=== PATIENT | female | born 1965 | race Caucasian/White ===

== ENCOUNTER 2017-06-02 22:20 | Emergency (ER) | payer OTHER ==
[2017-06-02 23:45] LABS: ABS Basophils 0 10^3/ul (0-0.2); ABS Eosinophils 0.2 10^3/ul (0-0.6); ABS Lymphocytes 1.7 10^3/ul (1.0-4.8); ABS Monocytes 0.4 10^3/ul (0-0.8); ABS Neutrophils 2.2 10^3/ul (1.5-7.7); ABS Nucleated RBC 0 10^3/ul; Eosinophil % 4.3 % (0-6); Hematocrit 36 % (35-47); Hemoglobin 12.6 g/dl (12.0-16.0); Lymphocyte % 37.1 % (25-47); Mean Corpuscular HGB Conc 35 g/dl (31-36); Mean Corpuscular Hemoglobin 31 pg (27-31); Mean Corpuscular Volume 88 fL (80-97); Mean Platelet Volume 8 um3 (7.4-10.4); Nucleated Red Blood Cells % 0; Platelet Count 249 10^3/ul (150-450); Red Blood Count 4.08 10^6/ul (4.0-5.4); Red Cell Distribution Width 13 % (10.5-15); White Blood Count 4.5 10^3/ul (3.5-10.8)
[2017-06-03 00:20] LABS: EGFR Non-African American 77.6 (>60)
--- NOTE | 2017-06-03 00:32 | ED ---
HPI Chest Pain - HPI Summary HPI Summary: 51 female presents to ED with complaints of left sided chest pain that began around 7pm this evening 06/02/17 and resolved spontaneously around 11pm. Patient states pain was sharp and shooting and progressed throughout the few hours it lasted. States it radiated into left arm/shoulder and her left arm felt heavy. Some radiation into back. Denies any jaw radiation. Patient states the pain took her breath away however she was not having trouble breathing or SOB. Denies numbness/tingling. No nausea, vomiting, fever, chills, abdominal pain. Did not recently eat any acidic, spicy or greasy foods. States pain resolved on its own. Has never had this type of pain in the past. States she is healthy without any PMHx and no risk factors. Denies recent travel, cigarette use, prolonged bed rest. No history of blood clots. No medications. No pain or SOB on exertion. No other complaints. No cough or congestion. No recent illness. - History of Current Complaint Chief Complaint: EDChestPainROMI Time Seen by Provider: 06/02/17 22:47 Hx Obtained From: Patient Onset/Duration: Started Hours Ago, Resolved Timing: Constant, Lasting Hours Initial Severity: Severe Current Severity: Mild Pain Intensity: 3 Pain Scale Used: 0-10 Numeric Chest Pain Location: Left Anterior Chest Pain Radiates: Yes Chest Pain Radiates To:: Shoulder - L, Arm - L Character: Burning, Sharp/Stabbing Aggravating Factor(s): Nothing Alleviating Factor(s): Spontaneous Resolution Associated Signs and Symptoms: Positive: Chest Pain - Risk Factors Pulmonary Embolism Risk Factors: Negative TAD Risk Factors: Negative AMI/ACS Risk Factors: Family History - father [place] - Allergy/Home Medications Allergies/Adverse Reactions: Allergies Allergy/AdvReac Type Severity Reaction Status Date / Time PRESERVATIVES Allergy RASH FROM Uncoded 06/02/17 22:45 SOME LOTIONS PMH/Surg Hx/FS Hx/Imm Hx Endocrine/Hematology History: Reports: Hx Anemia - HX OF RELATED TO CURRENT SITUATION Cardiovascular History: Denies: Hx Hypertension, Other Cardiovascular Problems/Disorders Respiratory History: Denies: Other Respiratory Problems/Disorders GI History: Denies: Other GI Disorders Musculoskeletal History: Denies: Other Musculoskeletal History Sensory History: Reports: Hx Contacts or Glasses - GLASSES Denies: Hx Hearing Aid Opthamlomology History: Reports: Hx Contacts or Glasses - GLASSES Neurological History: Denies: Other Neuro Impairments/Disorders - Cancer History Hx Chemotherapy: No Hx Radiation Therapy: No - Surgical History Hx Anesthesia Reactions: No - Immunization History Date of Influenza Vaccine: Fall 2016 Infectious Disease History: No Infectious Disease History: Denies: Traveled Outside the [place] in Last 30 Days - Family History Known Family History: Positive: None - Social History Alcohol Use: Rare Alcohol Amount: 1 PER WEEK Substance Use Type: Reports: None Smoking Status (MU): Never Smoked Tobacco Have You Smoked in the Last Year: No Review of Systems Constitutional: Negative Positive: Chest Pain Respiratory: Negative Neurological: Negative All Other Systems Reviewed And Are Negative: Yes Physical Exam Triage Information Reviewed: Yes Vital Signs On Initial Exam: Initial Vitals Temp Pulse Resp BP Pulse Ox 99 F 60 18 180/101 100 06/02/17 22:23 06/02/17 22:23 06/02/17 22:23 06/02/17 22:23 06/02/17 22:23 BP imporved on recheck 117/73 Vital Signs Reviewed: Yes Appearance: Positive: Well-Appearing, No Pain Distress, Well-Nourished Skin: Positive: Warm, Skin Color Reflects Adequate Perfusion, Dry. Negative: Cold, Numb, Cyanosis @, Pale, Erythema @ Head/Face: Positive: Normal Head/Face Inspection Eyes: Positive: Conjunctiva Clear ENT: Positive: Pharynx normal Neck: Positive: Supple, Nontender Respiratory/Lung Sounds: Positive: Clear to Auscultation, Breath Sounds Present. Negative: Rales, Rhonchi, Tracheal Deviation, Wheezes Cardiovascular: Positive: Normal, RRR, Pulses are Symmetrical in both Upper and Lower Extremities, Other - reproducible. Negative: Murmur, Rub, Tachycardia, Leg Edema Left, Leg Edema Right Abdomen Description: Positive: Nontender, Soft Bowel Sounds: Positive: Present Musculoskeletal: Positive: Normal, Strength/ROM Intact Neurological: Positive: Normal, Sensory/Motor Intact, Alert, Oriented to Person Place, Time, CN Intact II-III, Normal Gait Diagnostics - Vital Signs Vital Signs Temp Pulse Resp BP Pulse Ox 06/03/17 00:01 57 14 135/76 97 06/03/17 00:00 56 15 98 06/02/17 23:30 56 19 136/89 97 06/02/17 23:00 57 21 121/80 97 06/02/17 22:50 57 98 06/02/17 22:49 138/84 06/02/17 22:23 99 F 60 18 180/101 100 - Laboratory Lab Results: Lab Results 06/02/17 06/02/17 06/02/17 Range/Units 23:33 23:33 23:33 WBC 4.5 (3.5-10.8) 10^3/ul RBC 4.08 (4.0-5.4) 10^6/ul Hgb 12.6 (12.0-16.0) g/dl Hct 36 (35-47) % MCV 88 (80-97) fL MCH 31 (27-31) pg MCHC 35 (31-36) g/dl RDW 13 (10.5-15) % Plt Count 249 (150-450) 10^3/ul MPV 8 (7.4-10.4) um3 Neut % (Auto) 48.7 (38-83) % Lymph % (Auto) 37.1 (25-47) % Bremer % (Auto) 9.0 (1-9) % Eos % (Auto) 4.3 (0-6) % Baso % (Auto) 0.9 (0-2) % Absolute Neuts (auto) 2.2 (1.5-7.7) 10^3/ul Absolute Lymphs (auto) 1.7 (1.0-4.8) 10^3/ul Absolute Monos (auto) 0.4 (0-0.8) 10^3/ul Absolute Eos (auto) 0.2 (0-0.6) 10^3/ul Absolute Basos (auto) 0 (0-0.2) 10^3/ul Absolute Nucleated RBC 0 10^3/ul Nucleated RBC % 0 Sodium 136 (133-145) mmol/L Potassium 4.0 (3.5-5.0) mmol/L Chloride 103 (101-111) mmol/L Carbon Dioxide 29 (22-32) mmol/L Anion Gap 4 (2-11) mmol/L BUN 16 (6-24) mg/dL Creatinine 0.78 (0.51-0.95) mg/dL Est GFR ( Amer) 99.7 (>60) Est GFR (Non-Af Amer) 77.6 (>60) BUN/Creatinine Ratio 20.5 H (8-20) Glucose 126 H (70-100) mg/dL Lactic Acid 0.9 (0.5-2.0) mmol/L Calcium 9.4 (8.6-10.3) mg/dL Total Bilirubin 1.00 (0.2-1.0) mg/dL AST 15 (13-39) U/L ALT 9 (7-52) U/L Alkaline Phosphatase 55 (34-104) U/L Troponin I 0.00 (<0.04) ng/mL Total Protein 6.6 (6.4-8.9) g/dL Albumin 4.0 (3.2-5.2) g/dL Globulin 2.6 (2-4) g/dL Albumin/Globulin Ratio 1.5 (1-3) Result Diagrams: 06/02/17 23:33 06/02/17 23:33 Lab Statement: Any lab studies that have been ordered have been reviewed, and results considered in the medical decision making process. - EKG EKG Cardiac Rate: NL EKG Rhythm: Sinus Bradycardia - [address] Segment: Normal Ectopy: None EKG Interpretation: NSR, no stemi, 51 bpm EKG Comparison: Other - no EKG available to compare Re-Evaluation - Re-Evaluation First Eval Re-Evaluation Time: 00:00 Change: Improved - pain resolved. updated on results of labs and current plan, marvinn agrees and understands Second Eval Re-Evaluation Time: 02:00 Change: Improved - feeling better, wants to go home, second troponin results negative, agrees and understands Chest Pain Course/Dx - Course Course Of Treatment: labs obtained and negative. EKG NSR and negative no acute changes. troponin x 2 0.00. No symptoms while in ED. normal vitals. no concern for respiratory involvement. no risk factors or PMHx. patient refused chest xray. felt better and wanted to go home. labs unremarkable. no other concerns or complaints at this time. low risk according to MD Calc cardiac score. aware of worsening signs and symptoms. patient educated about ischemia and importance of cardiology/pcp follow up. differential: MSK, esophageal spasm, GERD, ACS, atypical chest pain. Spoke with Dr Degroot about case who agrees. - Chest Pain Differential Diagnosis/HQI/PQRI: Angina, Chest Wall, Other: - atypical chest pain, esophageal spasm, MSK, costochondritis - Diagnoses Provider Diagnoses: Atypical chest pain - Provider Notifications Discussed Care Of Patient With: Dr Degroot Discharge - Discharge Plan Condition: Stable Disposition: HOME Patient Education Materials: Chest Pain (ED), Chest Wall Pain (ED) Referrals: Marciano Jeffries MD [Primary Care Provider] - Additional Instructions: Please follow up with PCP. Recommend cardiology follow up. Any new, returning or worsening symptoms please seek medical attention immediately.
[2017-06-03 02:12] VITALS: BP 117/73
== END 2017-06-03 02:20 | disposition home or self-care (01) ==
LOC: ED 22:20
DX: R07.89 Other chest pain (principal); R00.1 Bradycardia, unspecified; D64.9 Anemia, unspecified
CPT/HCPCS: 36415; 80053; 83605; 84484; 85025; 93005; 99283

== ENCOUNTER → 2018-12-28 12:32 | Day surgery (SDC) | payer OTHER ==
[~2018-12-28 12:32] MED LIST: Acetaminophen TAB* 325 MG ONE; Acetaminophen TAB* 325 MG PO PRN; Buffered Lidocaine 1% SYRIN* 1 ML/SYRINGE INTRADERM ONE; Dexamethasone IV* 4 MG/ML 1 ML (4 MG) IV SLOW PU ONE; Dexamethasone IV* 4 MG/ML 1 ML (4 MG) ONE; DiMENhydriNATE IV* 50 MG/ML VIAL IV PUSH PRN; DiMENhydriNATE IV* 50 MG/ML VIAL ONE; EPHEDrine (Pressors)* 50 MG/ML VIAL ONE; Famotidine IV* 10 MG/ML 2 ML (20 mg) IV ONE; Famotidine IV* 10 MG/ML 2 ML (20 mg) ONE; Ketorolac INJ* 30 MG/ML 1 ML VIAL IV PRN; Ketorolac INJ* 30 MG/ML 1 ML VIAL ONE; Lactated Ringers 1000 ML Bag* 1,000 ML IV SCH; Lidocaine 1% w EPI 1:200,000* SDV 30 ML VIAL ONE; Lidocaine 2% PF * 5 ML VIAL ONE; Lidocaine 2% w/ EPI 1:200,000* 20 ML SDV VIAL ONE; Midazolam* 1 MG/ML 2 ML VIAL (2 MG) ONE; Naloxone* 0.4 MG/ML 1 ML VIAL IV PRN; Ondansetron INJ* 2 MG/ML VIAL ONE; Oxymetazoline 0.05% NASAL SPR* 15 ML BTL ONE; Propofol* 10 MG/ML 20 ML BTL ONE; fentaNYL* 50 MCG/ML 2 ML VIAL (100 MCG VIAL) IV PRN; fentaNYL* 50 MCG/ML 2 ML VIAL (100 MCG VIAL) ONE; hydrALAZINE IV* 20 MG/ML VIAL ONE; oxyCODONE TAB* 5 MG TAB PO PRN; oxyCODONE/Acetamin 5/325 MG* TAB PO PRN
[2018-12-28 15:38] VITALS: BP 146/88
[2018-12-28] MEDS: hydrALAZINE IV* 20 MG/ML VIAL IV SLOW PU PRN ×2 (16:50→17:18)
--- NOTE | 2018-12-28 19:32 | PN ---
Progress Note - Progress Note Date of Service: 12/28/18 - Anesthesia Note Note: Patient is s/p sinus surgery under general anesthesia. Patient intra-op course was uneventful. In PACU patient was noted to be hypertensive and having pain. Her pain was treated to a 3/10 level with IV medications but her hypertension only mildly improved. She later complained of some vague lateral chest pain under her left breast to her mid back. Pain was mildly exacerbated with palpation. States mildly SOB, NO substernal chest pain, or radiation to arm or neck. NO nausea or vomiting. BP elevated again. An EKG was ordered, hydralazine treatment for elevated BP, Toradol for pain. EKG reading discussed with Dr. Garcia and not acute changes and no change from a prior ekg. Her lungs were CTA bilaterally, RRR, no murmur. Patient refused any troponin bloodwork. Her pain inproved significantly and her BP was near her baseline. Her other vitals signs remained stable and the chest discomfort resloved. The patient had a similar episode in 05/30 and stated no further workup was done other than an ER visit. I discussed the low probability of cardiac concerns but told her that is pain reoccurs or other symptoms that are of a concern such as worsening chest pain with radiation to jaw or arm, SOB to come to ED for evaulation. All her questions were answered and she felt good to go home. Dr. Ely
--- NOTE | 2018-12-28 23:54 | OP ---
DATE OF OPERATION: 12/28/18 - SDS DATE OF : 63 SURGEON: Eliu Miramontes MD PRE-OP DIAGNOSES: Nasal dyspnea, deviated nasal septum, and hypertrophy of turbinates. POST-OP DIAGNOSES: Nasal dyspnea, deviated nasal septum, and hypertrophy of turbinates. OPERATIVE PROCEDURE: Septoplasty and submucosal resection of the inferior turbinates. BRIEF HISTORY: This is a pleasant 53-year-old female with nasal dyspnea, deviated nasal septum, not improving with medical management, elected for surgical therapy. DESCRIPTION OF PROCEDURE: The patient was taken to the operating room, general anesthesia was given, the patient was intubated. Nose was decongested with Afrin- placed pledgets. Lidocaine 2% with epinephrine was infiltrated into the mucosa of the septum in both sides. Left hemitransfixion incision was created. Mucoperichondrial flap was elevated. Quadrangular cartilage was then disarticulated along the vomer ethmoidal complex and along the maxillary crest posteriorly and inferiorly. Once this was done, portion of the maxillary crest was removed as well as portion of the vomer ethmoidal complex allowing the quadrangular cartilage to swing freely. Once in the midline, it was replaced. Portion of the ethmoidal section was removed where there was a lot of spur. Next, we turned our attention by securing the quadrangular cartilage to the midline with multiple mattress sutures of chromic. The hemitransfixion incision was then closed in single layer. We then put some Luc splints. Next, we turned our attention to the inferior turbinate. Inferior turbinate mucosal elevation was carried out and some inferior turbinate bone was removed and the submucosal tissue was then cauterized. Once adequate hemostasis was obtained, the patient was awakened and sent to recovery room in stable condition. Instrument and sponge count correct. Blood loss minimal. [id number]/[facility] #: [id number] MTDD
== END | disposition home or self-care (01) ==
LOC: OR 12:32
PROVIDERS: ATTEND Otolaryngology
DX: J34.2 Deviated nasal septum (principal); J34.3 Hypertrophy of nasal turbinates; J31.0 Chronic rhinitis; R00.1 Bradycardia, unspecified
CPT/HCPCS: 81025; 93005; A9270-GY; J0360; J1100; J1240; J1885; J2001; J2250; J2405; J2704; J3010